=== PATIENT | male | born 1945 | race Caucasian/White ===

== ENCOUNTER → 2023-10-28 09:06 | Outpatient (REF) | payer OTHER, SELFPAY ==
[2023-10-28 09:37] LABS: % Basophils 0.9 % (0-2); % Eosinophils 4.8 % (0-6); % Immature Granulocytes 0.2 % (0-0.5); % Lymphocytes 11.6 % (20.5-51.1); % Monocytes 10.3 % (1.7-9.3); % Neutrophils 72.2 % (42.2-75.2); Absolute Basophils 0.1 10^3/uL (0-0.2); Absolute Eosinophils 0.3 10^3/uL (0-0.7); Absolute Lymphocytes 0.7 10^3/uL (1.2-3.4); Absolute Monocytes 0.6 10^3/uL (0.1-0.6); Absolute Neutrophils 4.1 10^3/uL (1.4-6.5); Hematocrit 43.3 % (39.0-52.0); Hemoglobin 14.8 g/dL (13.0-18.0); Mean Corp Hgb Conc. 34.2 g/dL (33.0-37.0); Mean Corpuscular Hgb 32.2 pg (27.0-31.0); Mean Corpuscular Volume 94.1 fL (80.0-94.0); Mean Platelet Volume 10.4 fL (7.4-10.4); Nucleated Red Blood Cells % 0 % (-); Platelet Count 223 10^3/uL (130-400); Red Cell Dist. Width 13.8 % (11.5-14.5); White Blood Cell Count 5.6 10^3/uL (4.8-10.8)
[2023-10-28 10:08] LABS: ALT (SGPT) 19 U/L (0-50); AST (SGOT) 24 U/L (17-59); Albumin 4.1 g/dl (3.5-5.0); Alkaline Phosphatase 53 U/L (38-126); Blood Urea Nitrogen 15 mg/dl (9-20); Calcium 9.4 mg/dl (8.4-10.2); Carbon Dioxide 29 mmol/L (22-30); Chloride 101 mmol/L (98-107); Glucose 101 mg/dl (70-99); HDL Cholesterol 73 mg/dl; LDL Cholesterol, Calculated 86 mg/dl; Potassium 3.8 mmol/L (3.5-5.1); Sodium 137 mmol/L (135-145); Total Bilirubin 1.4 mg/dl (0.2-1.3); Total Cholesterol 171 mg/dl (50-199); Total Protein 6.5 g/dl (6.3-8.2); Triglyceride 61 mg/dl (10-149); Very Low Density Lipoprotein 12 mg/dl (0-30); eGFR > 60.00
[2023-10-28 10:34] LABS: PSA, Total - Screen 2.69 ng/ml (0.0-4.0)
[2023-10-28 11:08] LABS: Urine Albumin Negative (Neg - Trace); Urine Bilirubin Negative (Negative); Urine Character Clear (Clear); Urine Color Yellow; Urine Glucose Negative (Negative); Urine Ketone Trace (Negative); Urine Leukocyte Negative (Negative); Urine Nitrite Negative (Negative); Urine Occult Blood Negative (Negative); Urine Specific Gravity 1.015 (<1.030); Urine Urobilinogen Negative (Neg - 1+)
[2023-10-28 11:10] LABS: Folate > 20.0 ng/ml (2.76-20); Vitamin B12 418 pg/ml (239-931)
[2023-10-31 16:11] LABS: Vitamin B6 Results 108.2 nmol/L (20.0-125.0)
== END ==
LOC: REG 09:06
PROVIDERS: ATTENDING PHYSICIAN Internal Medicine
DX: K76.0 Fatty (change of) liver, not elsewhere classified (principal); K52.832 Lymphocytic colitis; R41.89 Other symptoms and signs involving cognitive functions and awareness; E78.2 Mixed hyperlipidemia; Z12.5 Encounter for screening for malignant neoplasm of prostate
CPT/HCPCS: 36415; 80053; 80061; 81003; 82607; 82746; 84207; 84443; 85025; G0103

== ENCOUNTER → 2023-11-04 07:20 | Outpatient (REF) | payer OTHER, SELFPAY | LOC: RAD 07:20 | PROVIDERS: ATTENDING PHYSICIAN Internal Medicine | DX: R41.89 Other symptoms and signs involving cognitive functions and awareness (principal) | CPT/HCPCS: 93880 ==

== ENCOUNTER → 2023-11-13 07:27 | Outpatient (REF) | payer OTHER, SELFPAY | LOC: MRI 3T 07:27 | PROVIDERS: ATTENDING PHYSICIAN Internal Medicine | DX: R47.89 Other speech disturbances (principal); R41.89 Other symptoms and signs involving cognitive functions and awareness | CPT/HCPCS: 70551 ==

== ENCOUNTER 2023-11-20 13:03 | Emergency (ER) | payer OTHER, SELFPAY ==
[2023-11-20 13:05] VITALS: BP 145/80; BMI 22.4
[2023-11-20 13:39] VITALS: BP 138/74
--- NOTE | 2023-11-20 13:41 | ED.GENMED ---
History of Present Illness
General
Chief Complaint: Abdominal Symptoms
Source: patient
Exam Limitations: none
Time Seen by Provider: 11/20/23 13:35
Nursing documentation reviewed up to this point in time: agreed with
Travel History
Have you had any contact with someone who has COVID-19?: No
Do you have any symptoms of coronavirus? Fever > 100 degrees, chills, cough, shortness of breath, sore throat, loss of taste or smell, muscle aches, or headache?: No
History of Present Illness
History of Present Illness:
77-year-old male presents stating he has had intermittent bouts of large amounts of brown watery diarrhea with formed stools over the past 5 days. Had formed stools past 2 days but today, again large amt. liquid brown stool. He denies fever or
chills, denies abdominal pain. The diarrhea is nonbloody. No recent antibiotic use. 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 He also had a colonoscopy at that time that
showed diverticulum.
Past History
Past History
ED Past Medical History: GERD (takes Pantoprazole)
ED Past Surgical History: None
Social History
Tobacco: Non-smoker
Personal:
Living: with family
Review of Systems
Review of Systems
Allergies reviewed?: Yes
All Other Systems: ROS reviewed and negative except as documented in HPI and ROS
Constitutional: Denies fever, fatigue or chills
Respiratory: Denies trouble breathing
Cardiac: Denies chest pain
ABD/GI: Reports nausea and diarrhea; Denies abdominal pain, vomiting, bloody stools, black stools or anorexia
: Denies dysuria, frequency or difficulty voiding
Musculoskeletal: Reports no symptoms
Skin: Reports no symptoms
Neurological: Reports no symptoms
Phy Exam
Physical Exam
Physical Exam:
GENERAL: No acute distress. A&Ox3.
CONSTITUTIONAL: Afebrile.
EYES: Clear, conjunctivae normal
ENMT: moist mucus membranes, Pharynx nl
RESPIRATORY: Regular respirations, nonlabored, lungs clear.
CARDIOVASCULAR: Regular rate and rhythm, no murmurs, no rubs.
GI: Soft, nontender, nondistended, normal BS
MUSCULOSKELETAL: Moves with ease. Well perfused.
SKIN: Warm, dry, pink
PSYCH: Normal mood and affect. Well kept, interactive and appropriate
NEUROLOGIC: Awake, alert and oriented. No focal neurological deficits
Course
Orders/Labs/Results
Orders:
Orders
11/20/23 13:57
Iohexol [Omnipaque] See Protocol PO NOW STA
11/20/23 13:58
CT Abd/pel W Iv And Oral Contr Urgent
Comment:
Reason For Exam: diarrhea x 4 days hx colitis
11/20/23 14:16
Complete Blood Count/With Diff Urgent
Comprehensive Metabolic Panel Urgent
Comment: add on
Lipase Urgent
11/20/23 15:17
Add On- LAB Urgent
Tests Added?: CMP
Abnormal Lab Results
11/20/23
14:16
RBC 4.43 L 10^6/uL
(4.70-6.10)
MCH 32.1 H pg
(27.0-31.0)
MPV 10.7 H fL
(7.4-10.4)
Absolute Neuts (auto) 7.3 H 10^3/uL
(1.4-6.5)
Absolute Lymphs (auto) 0.9 L 10^3/uL
(1.2-3.4)
Absolute Monos (auto) 0.7 H 10^3/uL
(0.1-0.6)
Neutrophils % 81.0 H %
(42.2-75.2)
Lymphocytes % 9.6 L %
(20.5-51.1)
Glucose 103 H mg/dl
(70-99)
11/20/23 14:16
11/20/23 14:16
Vital Signs
Initial and Last Documented VS:
Initial Vital Signs
Temp Pulse Resp BP Pulse Ox
98.2 F 69 16 145/80 100
11/20/23 13:05 11/20/23 13:05 11/20/23 13:05 11/20/23 13:05 11/20/23 13:05
Last Documented Vital Signs
Temp Pulse Resp BP Pulse Ox
98.2 F 69 16 142/89 99
11/20/23 13:05 11/20/23 13:46 11/20/23 13:46 11/20/23 17:00 11/20/23 16:56
Tying Machine Operator consulted with Physician
Tying Machine Operator consulted with physician?: Yes
Name of Physician Consulted: Charles
MDM/Problems Addressed
Differential Diagnosis Includes:
Viral diarrhea, bacterial diarrhea, diverticulitis, colitis
MDM/Problems Addressed:
77-year-old male presents stating he has had intermittent bouts of large amounts of brown watery diarrhea with formed stools over the past 5 days. Had formed stools past 2 days but today, again large amt. liquid brown stool. He denies fever or
chills, denies abdominal pain. The diarrhea is nonbloody. No recent antibiotic use. No sick contacts, no known exposures. 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 He
also had a colonoscopy at that time that showed diverticulum.
Afebrile, NAD, pleasant and calm
11/20/2023 1755 PM
CBC normal
CMP normal
Lipase normal
CAT scan abdomen pelvis with p.o. and IV contrast radiology report read: IMPRESSION:
No acute inflammatory process within the abdomen or pelvis.
The appendix is normal.
Moderate solid fecal burden in the ascending colon and transverse colon, suggesting constipation. However, the descending colon and rectosigmoid colon are relatively collapsed with a small amount of liquid feces in the rectosigmoid colon. There is
mild gaseous distention of the intervening elongated and slightly redundant sigmoid colon. No evidence of bowel obstruction.
The appendix is normal.
No diarrhea during this visit.
Case discussed with Dr. Soto who agrees no further treatment needed.
Discussed CAT scan results with patient as well as lab work, he is comfortable going home, he has had no diarrhea since earlier this a.m. He will follow-up with his GI doctor or his family doctor if diarrhea persist beyond another week.
*Critical Care Note
Total Time (30-74mins, 75-104mins- exclusive of procedures): Not Applicable
ED Attending Note
-
Portions of this chart may have been created with voice recognition software.� Occasional wrong word or��sound alike� substitutions may have occurred due to the inherent limitations of voice recognition software.
Discharge Plan
Departure
Patient Disposition: Home (Routine Discharge)
Date of Disposition: 11/20/23
Time of Disposition: 18:03
Patient with high blood pressure during this ER visit?: No
Condition: Good
Discharge Problem:
Diarrhea
Instructions: Diarrhea in adolescents and adults
Prescriptions:
No Action
hydrocodone-acetaminophen 1 TABLET tablet
1 - 2 tab PO Q4HPRN PRN (Reason: moderate to severe pain) Qty: 20 0RF
Referrals:
NONE,* [Active] -
Ariela Porter, DO [Active] - As needed
Jacek Kendrick, DO [Family Provider] - As needed
Activity Restrictions/Additional Instructions:
As we discussed, your lab work shows nothing worrisome
Your CAT scan shows nothing worrisome
If your diarrhea turns bloody, if you develop abdominal pain with the diarrhea or feel sicker in any way return here immediately. Otherwise see your family doctor or your GI doctor if the diarrhea persists beyond another week.
Interventions
Interventions:
*Risk Screen - Suicide Last Done: 11/20/23 13:05
*General Assessment Last Done: 11/20/23 13:44
*Neglect/Abuse Screening Last Done: 11/20/23 13:05
ED- Fall Risk Assessment Last Done: 11/20/23 13:44
*ED COVID-19 Vaccine History Last Done: 11/20/23 13:05
*Nursing Disposition Last Done: 11/20/23 18:13
MY-Ycqlkm-Bculoonrya Assessment Last Done: 11/20/23 13:46
Discharge Date and Time
Discharge Date/Time: 11/20/23 18:14
[2023-11-20 13:46] VITALS: BP 138/74
[2023-11-20 14:00] VITALS: BP 133/68
[2023-11-20] MEDS: OMNIPAQUE 50 ML PO (14:16)
[2023-11-20 14:33] LABS: % Basophils 0.4 % (0-2); % Eosinophils 1.4 % (0-6); % Immature Granulocytes 0.2 % (0-0.5); % Lymphocytes 9.6 % (20.5-51.1); % Monocytes 7.4 % (1.7-9.3); Absolute Eosinophils 0.1 10^3/uL (0-0.7); Absolute Lymphocytes 0.9 10^3/uL (1.2-3.4); Absolute Monocytes 0.7 10^3/uL (0.1-0.6); Absolute Neutrophils 7.3 10^3/uL (1.4-6.5); Hematocrit 40.9 % (39.0-52.0); Hemoglobin 14.2 g/dL (13.0-18.0); Mean Corp Hgb Conc. 34.7 g/dL (33.0-37.0); Mean Corpuscular Hgb 32.1 pg (27.0-31.0); Mean Corpuscular Volume 92.3 fL (80.0-94.0); Mean Platelet Volume 10.7 fL (7.4-10.4); Nucleated Red Blood Cells % 0 % (-); Platelet Count 217 10^3/uL (130-400); Red Blood Cell Count 4.43 10^6/uL (4.70-6.10); Red Cell Dist. Width 13.9 % (11.5-14.5)
[2023-11-20 14:37] LABS: Lipase 81 U/L (23-300)
[2023-11-20 15:00] VITALS: BP 130/85
[2023-11-20 16:17] LABS: ALT (SGPT) 19 U/L (0-50); AST (SGOT) 24 U/L (17-59); Albumin 4.4 g/dl (3.5-5.0); Alkaline Phosphatase 58 U/L (38-126); Blood Urea Nitrogen 14 mg/dl (9-20); Calcium 9.2 mg/dl (8.4-10.2); Carbon Dioxide 28 mmol/L (22-30); Chloride 105 mmol/L (98-107); Estimated Creatinine Clearance 75 ml/min; Glucose 103 mg/dl (70-99); Potassium 3.6 mmol/L (3.5-5.1); Sodium 138 mmol/L (135-145); Total Bilirubin 1.1 mg/dl (0.2-1.3); Total Protein 6.7 g/dl (6.3-8.2); eGFR > 60.00
[2023-11-20 17:00] VITALS: BP 142/89
== END 2023-11-20 18:14 | disposition home or self-care (01) ==
LOC: EMR 13:03
PROVIDERS: Registered Nurse; EMERGENCY PHYSICIAN Emergency Medicine; FAMILY PHYSICIAN Internal Medicine
DX: R19.7 Diarrhea, unspecified (principal); R14.0 Abdominal distension (gaseous)
CPT/HCPCS: 99284; 74177; 80053; 83690; 85025; Q9967

== ENCOUNTER → 2024-12-10 08:26 | Outpatient (REF) | payer OTHER, SELFPAY ==
[2024-12-10 09:24] LABS: % Basophils 1.2 % (0-2); % Eosinophils 5.2 % (0-6); % Immature Granulocytes 0.2 % (0-0.5); % Lymphocytes 14.2 % (20.5-51.1); % Neutrophils 70.2 % (42.2-75.2); Absolute Basophils 0.1 10^3/uL (0-0.2); Absolute Eosinophils 0.3 10^3/uL (0-0.7); Absolute Lymphocytes 0.7 10^3/uL (1.2-3.4); Absolute Monocytes 0.5 10^3/uL (0.1-0.6); Absolute Neutrophils 3.5 10^3/uL (1.4-6.5); Hematocrit 45.5 % (39.0-52.0); Hemoglobin 14.9 g/dL (13.0-18.0); Mean Corp Hgb Conc. 32.7 g/dL (33.0-37.0); Mean Corpuscular Hgb 31.2 pg (27.0-31.0); Mean Corpuscular Volume 95.2 fL (80.0-94.0); Mean Platelet Volume 10.1 fL (7.4-10.4); Nucleated Red Blood Cells % 0 % (-); Platelet Count 201 10^3/uL (130-400); Red Blood Cell Count 4.78 10^6/uL (4.70-6.10); Red Cell Dist. Width 13.5 % (11.5-14.5)
[2024-12-10 10:12] LABS: ALT (SGPT) 25 U/L (0-50); AST (SGOT) 25 U/L (17-59); Albumin 4.2 g/dl (3.5-5.0); Alkaline Phosphatase 58 U/L (38-126); Blood Urea Nitrogen 20 mg/dl (9-20); Calcium 9.4 mg/dl (8.4-10.2); Carbon Dioxide 31 mmol/L (22-30); Chloride 106 mmol/L (98-107); Glucose 96 mg/dl (70-99); HDL Cholesterol 68 mg/dl; LDL Cholesterol, Calculated 81 mg/dl; Potassium 4.5 mmol/L (3.5-5.1); Sodium 142 mmol/L (135-145); Total Bilirubin 0.9 mg/dl (0.2-1.3); Total Cholesterol 159 mg/dl (50-199); Total Protein 6.5 g/dl (6.3-8.2); Triglyceride 53 mg/dl (10-149); Very Low Density Lipoprotein 10 mg/dl (0-30); eGFR > 60.00
[2024-12-10 10:23] LABS: Urine Albumin Negative (Neg - Trace); Urine Bilirubin Negative (Negative); Urine Character Clear (Clear); Urine Color Yellow; Urine Glucose Negative (Negative); Urine Ketone Negative (Negative); Urine Leukocyte Negative (Negative); Urine Nitrite Negative (Negative); Urine Occult Blood 1+ (Negative); Urine Urobilinogen Negative (Neg - 1+)
[2024-12-10 10:43] LABS: PSA, Total - Screen 1.43 ng/ml (0.0-4.0)
[2024-12-10 10:52] LABS: TSH 1.15 uIU/ml (0.47-4.68)
[2024-12-10 11:18] LABS: Folate > 20.0 ng/ml (2.76-20); Vitamin B12 458 pg/ml (239-931)
[2024-12-10 11:22] LABS: Urine Amorphous Seen; Urine Squamous Cell 0-2 /LPF (Few)
[2024-12-10 11:25] LABS: Urine Red Blood Cell 0-2 /HPF (0-2); Urine White Cell 0-2 /HPF (0-5)
[2024-12-12 13:35] LABS: Vitamin B6 Results 99.3 nmol/L (20.0-125.0)
== END ==
LOC: REG 08:26
PROVIDERS: ATTENDING PHYSICIAN Internal Medicine
DX: K52.832 Lymphocytic colitis (principal); Z12.5 Encounter for screening for malignant neoplasm of prostate; E78.2 Mixed hyperlipidemia; K76.0 Fatty (change of) liver, not elsewhere classified; R41.89 Other symptoms and signs involving cognitive functions and awareness
CPT/HCPCS: 36415; 80053; 80061; 81003; 81015; 82607; 82746; 84207; 84443; 85025; G0103